=== PATIENT | male | born 2000 | race Caucasian/White ===

== ENCOUNTER 2019-03-04 19:18 | Emergency (ER) | payer BC, SELFPAY ==
[2019-03-04 19:23] VITALS: BP 136/53; PULSE 69; RESP 17; TEMP 36.8; O2SAT 98; BMI 19.6
--- NOTE | 2019-03-04 19:33 | DI.US.S_ITS ---
PROCEDURE: US PERIPH VENOUS LOW EXTREM RT INDICATIONS: PAIN TECHNIQUE: Real-time imaging, as well as color and pulse Doppler interrogation, were performed of the lower extremity deep veins from the inguinal ligament to the popliteal fossa. COMPARISON: None. FINDINGS: The common femoral, femoral and popliteal veins are normally compressible, and free of intraluminal thrombus. Color and pulse Doppler demonstrate normal phasic intraluminal flow. There is normal augmentation response to distal compression maneuver. IMPRESSION: No deep venous thrombosis Dictated by: Sherry Mckeon M.D. on 03/04/2019 at 21:41 Approved by: Sherry Mckeon M.D. on 03/04/2019 at 21:41
[2019-03-04 19:40] VITALS: BP 132/61; PULSE 65; RESP 16; TEMP 36.9; O2SAT 99
--- NOTE | 2019-03-04 19:42 | ED.EXTPRO ---
HPI - Extremity Problem General Chief complaint: Extremity Problem,Nontraumatic Stated complaint: Right lower leg pain Time Seen by Provider: 03/04/19 19:32 Source: patient Mode of arrival: ambulatory Limitations: no limitations History of Present Illness HPI Narrative: Patient is a 18-year-old male here from the [facility] for concern of a pain in his right lower extremity. 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 He denies any chest pain or shortness of breath. He does not think that his leg is swollen now. He came into the emergency department for evaluation. Related Data Allergies Allergy/AdvReac Type Severity Reaction Status Date / Time peanut [PEANUT] Allergy Severe hives, Verified 03/04/19 19:28 difficulty breathign, itchy tongue Review of Systems Constitutional Denies fever(s) ENT Ears, Nose, Mouth, and Throat: Denies vertigo Cardiovascular Denies chest pain and Denies dyspnea Respiratory Denies dyspnea Gastrointestinal Gastrointestinal: Denies abdominal pain Musculoskeletal Comments: Right calf pain Integumentary/Breasts Denies new lesions and Denies rash Neurologic Denies vertigo and Denies paresthesias Hematologic/Lymphatic Denies easy bleeding and Denies easy bruising [facility] Medical History Healthy adult (Acute) Social History Smoking Status: Never smoker Social History Smoking Status: Never smoker Exam Initial Vital Signs Initial Vital Signs: Vital Signs Temperature 98.3 F 03/04/19 19:23 Pulse Rate 69 03/04/19 19:23 Respiratory Rate 17 03/04/19 19:23 Blood Pressure 136/53 L 03/04/19 19:23 Pulse Oximetry 98 03/04/19 19:23 Const General: cooperative, comfortable, well developed, well groomed and No acute distress Orientation: alert, awake and oriented x3 HENMT Head: normal to inspection and normocephalic Resp Effort & Inspection: normal respiratory effort Auscultation: clear to auscultation bilaterally Cardio Rate: regular rate Rhythm: regular rhythm Pulses: dorsalis pedis present on the right Skin Lesions: no lesions Rashes: no rashes Neuro General: alert, awake and oriented x3 Cognition: normal cognition Speech: speech normal Extrem General: normal to inspection and capillary refill normal Other: Tenderness to palpation along the medial aspect of the right calf. Psych Appearance: grossly normal and well kempt Course Orders Ordered: ED Orders 03/04/19 19:33 US periph venous low extrem rt Stat Vital Signs - 8 hr 03/04/19 19:23 03/04/19 19:40 Temperature 98.3 F 98.4 F Pulse Rate 69 65 Respiratory Rate 17 16 Blood Pressure 136/53 L Blood Pressure [Right Arm] 132/61 Pulse Oximetry 98 99 MDM - Extremity (Nontraumatic) Imaging Data Venous US: Radiologist's impression: [address] [address] Ultrasound Report Signed Patient: Leeroy Brush [facility]#: [id number] : 2000Acct:[id number] Age/Sex: MDate of Service: 03/04/19 Loc: ED Accession Number: [id number] Procedure: US perip venous low extrem rt Ordering Provider: Melvin Kinney D.O. PROCEDURE: US PERIP VENOUS LOW EXTREM RT INDICATIONS: PAIN TECHNIQUE: Real-time imaging, as well as color and pulse Doppler interrogation, were performed of the lower extremity deep veins from the inguinal ligament to the popliteal fossa. COMPARISON: None. FINDINGS: The common femoral, femoral and popliteal veins are normally compressible, and free of intraluminal thrombus. Color and pulse Doppler demonstrate normal phasic intraluminal flow. There is normal augmentation response to distal compression maneuver. IMPRESSION: No deep venous thrombosis Dictated by: Sherry Mckeon M.D. on 03/04/2019 at 21:41 Approved by: Sherry Mckeon M.D. on 03/04/2019 at 21:4 [facility] Narrative Medical decision making narrative: No chest pain, no shortness of breath, ultrasound negative for DVT, physical exam is not consistent with DVT, no signs of cellulitis, hold on further workup for now. Suspect musculoskeletal etiology. Patient given return precautions and follow-up instructions. He expressed understanding and agreement with plan. Discharge Plan Departure Patient Disposition: Home Clinical Impression: Leg pain, right Discharge Date/Time: 03/04/19 21:08 Interventions: ED Discharge Assessment Last Done: 03/04/19 21:08 Instructions: DI for Leg Pain Activity Restrictions/Additional Instructions: There was no blood clot on the ultrasound. You have no restrictions on your activity. Return to the emergency department for any new or worsening symptoms
== END 2019-03-04 21:08 | disposition home or self-care (01) ==
PROVIDERS: Emergency Provider Emergency Medicine
DX: M79.604 Pain in right leg (principal)
CPT/HCPCS: 93971; 99282; 99283

== ENCOUNTER 2021-03-01 13:30 | Emergency (ER) | payer BC, SELFPAY ==
[2021-03-01 13:32] VITALS: BP 130/56; PULSE 59; RESP 16; TEMP 37.3; O2SAT 98
--- NOTE | 2021-03-01 13:35 | DI.RAD.S_ITS ---
PROCEDURE: XR ELBOW RT MIN 3V INDICATIONS: fall TECHNIQUE: 4 views of the elbow were acquired. COMPARISON: None. FINDINGS: Bones: No fractures or dislocations. No suspicious bony lesions. Soft tissues: No elbow joint effusion. No suspicious soft tissue calcifications. IMPRESSION: No fracture. No osseous lesion. If symptoms and/or clinical suspicion for pathology persists, further assessment with repeat radiographs (7-10 days) or advanced imaging (e.g. CT, MRI or bone scan) should be considered. Dictated by: Sharonda Galicia MD, PhD on 03/01/2021 at 14:07 Approved by: Sharonda Galicia MD, PhD on 03/01/2021 at 14:08
--- NOTE | 2021-03-01 16:30 | ED_ITS ---
HPI - Extremity Injury (Upper) General Chief Complaint: Extremity Injury, Upper Stated Complaint: right elbow injury 2 weeks ago Time Seen by Provider: 03/01/21 14:53 Source: patient Mode of arrival: Ambulatory History of Present Illness HPI narrative: This is a 20-year-old male who comes to the emergency department with complaint of right elbow pain. Patient states he was hit in the right elbow on the inside about 2 weeks ago with a baseball. Patient developed large area of bruising. He is having difficulty fully extending his elbow. Patient states that he has continued to have discomfort. He has found that over the last 2 weeks it has been more difficult for him to fully extend his elbow. But it has been a very gradual change. Patient states he does have pain and with the elbow in the inside but also posteriorly. Patient states that he has also noticed that is the area of bruising has spread any has a newer area up above which is greenish discoloration. Patient denies any numbness, tingling. He feels like his fingers are maybe a little bit weaker. Patient denies any other new injuries. He denies any other medical issues. He does have a peanut allergy. 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 Related Data Allergies Allergy/AdvReac Type Severity Reaction Status Date / Time peanut [PEANUT] Allergy Severe hives, Verified 03/04/19 19:28 difficulty breathign, itchy tongue Review of Systems Review of Systems ROS Unobtainable: All systems reviewed & are unremarkable except as noted in HPI and below Patient History Medical History (Updated 03/01/21 @ 18:08 by Nikki Pierce DO) Healthy adult Social History Smoking Status: Never smoker Smoking Status: Never smoker alcohol intake frequency: 0-2 drinks per day Substance Use Type: does not use Exam Narrative Exam Narrative: GENERAL: Alert and oriented x three, well-nourished male in mild distress. HEENT: Head normocephalic, atraumatic, EOMI, pupils reactive, face symmetric, moist mucous membranes NECK: Supple, full range of motion EXTREMITIES: Normal range of motion except patient is not able to fully extend his elbow, he stops at about 160? of extension, patient is able to fully flex. He is able to supinate, pronate, flex and extend his wrist, he has full muscle strength with flexion extension of fingers as well as AVN 80 duction. Patient has 2+ radial pulse. Normal sensation throughout. Patient has some mild tenderness at the base of the biceps but no appreciable deformity in comparison to the other side. He also has tenderness of the distal humerus of the posterior elbow, no clubbing or edema. Neurovascularly intact. Patient does have slightly more fullness of the right biceps region compared to the left. It is not tender. He does have some greenish ecchymosis on his upper arm as well as on the inside of his elbow which appears old. NEUROLOGICAL: Cranial nerves II through XII grossly intact. Moving all extremities SKIN: Warm, dry, no petechiae, no rashes or lesions otherwise noted. Initial Vital Signs Initial Vital Signs: Vital Signs Temperature 99.1 F 03/01/21 13:32 Pulse Rate 59 L 03/01/21 13:32 Respiratory Rate 16 03/01/21 13:32 Blood Pressure 130/56 L 03/01/21 13:32 Pulse Oximetry 98 03/01/21 13:32 Course Orders Ordered: ED Orders 03/01/21 13:35 XR elbow RT min 3V Stat 03/01/21 16:36 US periph venous up extrem rt Stat Discontinued Medications Oxymetazoline HCl (Oxymetazoline Nasal Butler 15 Ml) 2 sprays NASAL NOW ONE Stop: 03/01/21 17:45 Last Admin: 03/01/21 17:51 Dose: 2 sprays Documented by: BTONER Vital Signs Vital signs: Vital Signs - 8 hr 03/01/21 13:32 Temperature 99.1 F Pulse Rate 59 L Respiratory Rate 16 Blood Pressure 130/56 L Pulse Oximetry 98 MDM - Extremity Injury (Upper) Imaging Data Extremity x-ray #1: Radiologist's Impression: [address] [id number] ReportSigned Patient: Leeroy Brush [facility]#: [id number]: 2000Acct:[id number]/Sex: 20 / MDate of Service: 03/01/21Loc: EDAccession Number: [id number] Procedure: XR elbow RT min 3V Ordering Provider: Gauri Carballo D.O. PROCEDURE: XR ELBOW RT MIN 3V INDICATIONS: fall TECHNIQUE: 4 views of the elbow were acquired. COMPARISON: None. FINDINGS: Bones: No fractures or dislocations. No suspicious bony lesions. Soft tissues: No elbow joint effusion. No suspicious soft tissue calci fications. IMPRESSION: No fracture. No osseous lesion. If symptoms and/or clinical suspicion for pathology persists, further assessment with repeat radiographs (7-10 days) or advanced imaging (e.g. CT, MRI or bone scan) should be considered. Dictated by: Sharonda Galicia MD, PhD on 03/01/2021 at 14:07 Approved by: Sharonda Galicia MD, PhD on 03/01/2021 at 14:08 US - DVT: Radiologist's Impression: [address] [id number] ReportSigned Patient: Leeroy Brush MMR#: [id number]: 2000Acct:[id number]/Sex: 20 / MDate of Service: 03/01/21Loc: EDAccession Number: [id number] Procedure: US periph venous up extrem rt Ordering Provider: Nikki Pierce D.O. PROCEDURE: US PERIPH VENOUS UP EXTREM RT INDICATIONS: hit by baseball 2wks ago, new bruising, swelling TECHNIQUE: Real-time imaging, as well as color and pulse Doppler interrogation, was performed of the right upper extremity deep veins from the inferior neck to the antecubital fossa. COMPARISON: None. FINDINGS: The internal jugular vein, visualized portions of the subclavian vein, axillary, and brachial veins are free of intraluminal thrombus. Where physically possible, the veins are normally compressible. Color and pulse Doppler demonstrate normal intraluminal flow, with expected phasicity and pulsatility. Additional scanning of the cephalic and basilic veins of the superficial system demonstrate normal compressibility, without thrombus. IMPRESSION: No evidence of deep venous thrombosis, right upper extremity Dictated by: Deepak Carranza M.D. on 03/01/2021 at 16:47 Approved by: Deepak Carranza M.D. on 03/01/2021 at 16:50 MDM Narrative Medical decision making narrative: This is a 20-year-old male comes emergency department with right elbow injury. Patient I suspect may have injured when tendons or ligaments, he is having difficulty fully extending. He does not have any obvious fracture or small pieces of bone that seem to be causing although to be unable to move fully. Patient does have some bruising suspect this is all related to the baseball that his his arm. He did have some slightly increased swelling of the bicep so DVT ultrasound was ordered which is negative. Patient does not have any obvious effusion on his x-ray imaging or on clinical exam. Did discuss differential such as hemarthrosis, tendon or ligament injury versus other cause. Patient was referred to Orthopedic surgery with only light duty all questions were answered. Discharge Plan Departure Patient Disposition: Home Clinical Impression: Injury of elbow, right Instructions: DI for [place] Elbow Activity Restrictions/Additional Instructions: Follow-up with orthopedic surgery in the next few days for recheck. Do not carry/lift more than 10 pounds with the affected arm. You may take ibuprofen up to 800 mg every 8 hours for pain and or Tylenol up to a 1000 mg every 8 hours for pain. Splint Care: Keep splint clean and dry. Elevated affected body part to decrease swelling. OK to use ice pack on the affected body part. Use for 15-20 minutes each time, for 5-6x per day. If you develop worsening pain, numbness, tingling, discoloration of the affected body part, adjust the sling, and either see your doctor for an urgent re-assessment, or return to the Emergency Department. Return to the Emergency Department for any new or worsening symptoms. Referrals: Tres Chavez MD [Physician] -
--- NOTE | 2021-03-01 16:36 | DI.US.S_ITS ---
PROCEDURE: US PERIPH VENOUS UP EXTREM RT INDICATIONS: hit by baseball 2wks ago, new bruising, swelling TECHNIQUE: Real-time imaging, as well as color and pulse Doppler interrogation, was performed of the right upper extremity deep veins from the inferior neck to the antecubital fossa. COMPARISON: None. FINDINGS: The internal jugular vein, visualized portions of the subclavian vein, axillary, and brachial veins are free of intraluminal thrombus. Where physically possible, the veins are normally compressible. Color and pulse Doppler demonstrate normal intraluminal flow, with expected phasicity and pulsatility. Additional scanning of the cephalic and basilic veins of the superficial system demonstrate normal compressibility, without thrombus. IMPRESSION: No evidence of deep venous thrombosis, right upper extremity Dictated by: Deepak Carranza M.D. on 03/01/2021 at 16:47 Approved by: Deepak Carranza M.D. on 03/01/2021 at 16:50
[2021-03-01] MEDS: OXYMETAZOLINE NASAL SPRAY 15 ML 2 SPRAYS NASAL (17:51)
== END 2021-03-01 18:58 | disposition home or self-care (01) ==
PROVIDERS: Emergency Provider Emergency Medicine
DX: S59.901A Unspecified injury of right elbow, initial encounter (principal); S50.01XA Contusion of right elbow, initial encounter; W21.03XA Struck by baseball, initial encounter
CPT/HCPCS: 73080; 93971; 99283; A9270